=== PATIENT | female | born 1975 | race African-American/Black ===

== ENCOUNTER 2021-06-10 12:30 | Emergency (ER) | payer MEDICAID ==
[~2021-06-10] VITALS: Ht 167.6 cm; Wt 61.0 kg
[2021-06-10 12:33] VITALS: BP 132/76
== END 2021-06-10 15:25 | disposition home or self-care (01) ==
LOC: ER 12:58
DX: S09.90XA Unspecified injury of head, initial encounter (principal); Y04.0XXA Assault by unarmed brawl or fight, initial encounter; Y93.89 Activity, other specified; Y92.89 Other specified places as the place of occurrence of the external cause; Y99.8 Other external cause status
CPT/HCPCS: 99284

== ENCOUNTER 2021-08-04 02:26 | Emergency (ER) | payer MEDICAID ==
[~2021-08-04] VITALS: Ht 157.5 cm; Wt 66.0 kg
[2021-08-04 02:36] VITALS: BP 156/89
== END 2021-08-04 07:12 | disposition left against medical advice (07) ==
LOC: ER 02:26
DX: Z53.21 Procedure and treatment not carried out due to patient leaving prior to being seen by health care provider (principal)